=== PATIENT | male | born 1990 | race African-American/Black ===

== ENCOUNTER 2019-07-14 18:04 | Emergency (ER) | payer OTHER ==
--- NOTE | 2019-07-14 20:06 | ER Document Report ---
ED Medical Screen (RME) - General Chief Complaint: STD Exposure Stated Complaint: POSSIBLE STD EXPOSURE Time Seen by Provider: 07/14/19 19:58 TRAVEL OUTSIDE OF THE [place] IN LAST 30 DAYS: No - HPI Notes: 07/14/19 20:04 28-year-old male presents emergency room for evaluation for STD exposure. Patient states he unprotected sexual intercourse approximately 2 days ago, since that time he has had dysuria with urination. Denies any drainage from meatus. Patient denies prior history of STDs. Denies any fevers chills, denies any abdominal pain, nausea vomiting diarrhea. I have greeted and performed a rapid initial assessment of this patient. A comprehensive ED assessment and evaluation of the patient, analysis of test results and completion of the medical decision making process will be conducted by additional ED providers. PHYSICAL EXAMINATION: GENERAL: Well-appearing, well-nourished and in no acute distress. CV: s1, s2 regular LUNGS: No respiratory distress SKIN: Warm, Dry, normal turgor, no rashes or lesions noted. - Related Data Allergies/Adverse Reactions: No Known Allergies Allergy (Verified 11/16/14 17:19) Past Medical History Pulmonary Medical History: Reports: Hx Asthma - Immunizations Immunizations up to date: Yes Hx Diphtheria, Pertussis, Tetanus Vaccination: No Physical Exam - Vital signs Vitals: Temp Pulse Resp BP Pulse Ox 99.5 F 79 20 133/73 H 99 07/14/19 18:29 07/14/19 18:29 07/14/19 18:29 07/14/19 18:29 07/14/19 18:29 Course - Vital Signs Vital signs: Temp Pulse Resp BP Pulse Ox 99.5 F 79 20 133/73 H 99 07/14/19 18:29 07/14/19 18:29 07/14/19 18:29 07/14/19 18:29 07/14/19 18:29
[2019-07-14 21:16] LABS: APPEARANCE,URINE CLEAR; BILIRUBIN,URINE NEGATIVE (NEGATIVE); COLOR,URINE YELLOW; GLUCOSE, URINE NEGATIVE (NEGATIVE); KETONES,URINE TRACE mg/dL (NEGATIVE); LEUKOCYTE ESTERASE,URINE NEGATIVE (NEGATIVE); NITRITE,URINE NEGATIVE (NEGATIVE); PROTEIN,URINE NEGATIVE (NEGATIVE); URINE SPECIFIC GRAVITY 1.025; UROBILINOGEN,URINE NEGATIVE mg/dL (<2.0)
[2019-07-14 22:35] LABS: CHLAM PCR DETECTED (NOT DETECT)
[2019-07-14] MEDS ORDERED: AZITHROMYCIN 250 MG TABLET PO ONE (22:42)
--- NOTE | 2019-07-14 22:43 | ER Document Report ---
HPI - HPI Patient complains to provider of: possible std exposure Time Seen by Provider: 07/14/19 19:58 Pain Level: Denies Notes: 28-year-old male to the emergency department with complaints of dysuria and exposure to STD. He states that his partner called him today and said that she tested positive for chlamydia. He states that he last had sexual intercourse with her about 3 days ago and he did not use protection. He denies any penile l esions, blood in his urine, abdominal pain, testicular pain, scrotal swelling, fevers. He states he has only one partner. - ROS ROS below otherwise negative: Yes Systems Reviewed and Negative: Yes All other systems reviewed and negative - CONSTITUTIONAL Constitutional: DENIES: Fever, Chills - EENT EENT: DENIES: Sore Throat, Congestion - NEURO Neurology: DENIES: Headache - CARDIOVASCULAR Cardiovascular: DENIES: Chest pain - RESPIRATORY Respiratory: DENIES: Trouble Breathing, Coughing - GASTROINTESTINAL Gastrointestinal: DENIES: Abdominal Pain, Nausea - URINARY Urinary: REPORTS: Dysuria - REPRODUCTIVE Reproductive: DENIES: : - DERM Skin Color: Normal Skin Problems: None Past Medical History - General Information source: Patient - Social History Smoking Status: Current Every Day Smoker Frequency of alcohol use: Rare Drug Abuse: None Lives with: Alone Family History: Reviewed & Not Pertinent Patient has suicidal ideation: No Patient has homicidal ideation: No Pulmonary Medical History: Reports: Hx Asthma - Immunizations Immunizations up to date: Yes Hx Diphtheria, Pertussis, Tetanus Vaccination: No Vertical Provider Document - CONSTITUTIONAL Agree With Documented VS: Yes Exam Limitations: No Limitations General Appearance: WD/WN - INFECTION CONTROL TRAVEL OUTSIDE OF THE [place] IN LAST 30 DAYS: No - HEENT HEENT: Atraumatic, PERRLA - NECK Neck: Normal Inspection, Supple - RESPIRATORY Respiratory: Breath Sounds Normal. negative: Rales, Rhonchi, Wheezing - CARDIOVASCULAR Cardiovascular: Regular Rate, Regular Rhythm, No Murmur - GI/ABDOMEN Gastrointestinal: Abdomen Soft, Abdomen Non-Tender - REPRODUCTIVE Male Genitalia: Normal Inspection Notes: No tenderness to palpation over bilateral testicles. There is no tali penile discharge. There is no penile lesions. Chaperoned by RN. - BACK Back: Normal Inspection - MUSCULOSKELETAL/EXTREMETIES Musculoskeletal/Extremeties: LIANNE GARCIA - NEURO Level of Consciousness: Awake, Alert Motor/Sensory: No Motor Deficit, No Sensory Deficit - DERM Integumentary: Warm Course - Re-evaluation Re-evalutation: Impression: STD exposure, dysuria, positive for chlamydia. Go ahead and start on azithromycin 1 g. Encouraged no sex for 1 week. Encouraged to return if any worsening symptoms. Patient agrees with the plan. - Vital Signs Vital signs: Temp Pulse Resp BP Pulse Ox 99.5 F 79 20 133/73 H 99 07/14/19 18:29 07/14/19 18:29 07/14/19 18:29 07/14/19 18:29 07/14/19 18:29 - Laboratory Laboratory results interpreted by me: 07/14/19 07/14/19 20:42 20:42 Urine Ketones TRACE H Urine Blood SMALL H Chlamydia DNA (PCR) DETECTED H Discharge - Discharge Clinical Impression: Dysuria, Chlamydia Condition: Stable Disposition: HOME, SELF-CARE Instructions: Chlamydia ([facility]) Additional Instructions: NO SEX FOR ONE WEEK. USE PROTECTION DURING SEX. RETURN IMMEDIATELY IF ANY TESTICULAR PAIN, FEVERS, OR ANY OTHER CONCERNING SYMPTOMS. Referrals: [facility] [Provider Group] - Follow up in 1 week
[2019-07-14 22:58] VITALS: BP 110/73
== END 2019-07-14 23:04 | disposition home or self-care (01) ==
LOC: ER 18:04
DX: R30.0 Dysuria (principal); A56.8 Sexually transmitted chlamydial infection of other sites; Z20.2 Contact with and (suspected) exposure to infections with a predominantly sexual mode of transmission; F17.200 Nicotine dependence, unspecified, uncomplicated
CPT/HCPCS: 36415; 81001; 86592; 87491; 87591; 99283